=== PATIENT | female | born 1940 | race African-American/Black ===

== ENCOUNTER 2016-10-07 15:55 | Inpatient (IN) | payer MEDICARE, MEDICAID ==
--- NOTE | 2016-10-07 16:15 | ED Physician Chart ---
Chief Complaint/HPI - Patient Information Date Seen:: 10/07/16 Time Seen:: 16:01 Chief Complaint:: PSYCHOSIS History of Present Illness:: THIS PATIENT IS 76 YO LONG-TERM PATIENT SENT HERE FOR EVALUATION AND TREATMENT. SHE IS UNABLE TO COMMUNICATE AND SPEAKS ONLY [place]. Allergies:: Allergies Allergy/AdvReac Type Severity Reaction Status Date / Time No Known Allergies Allergy Verified 10/07/16 16:00 Historian:: Medical Records Review:: Nurse's Note Reviewed Review of Systems - Review of Systems General/Constitutional: No fever, No chills, No weight loss, No weakness, No diaphoresis, No edema, No loss of appetite, Other (SHE CANNOT GIVE A REVIEW OF SYSTEMS) Skin: No skin lesions, No rash, No bruising Head: No headache, No light-headedness Eyes: No loss of vision, No pain, No diplopia ENT: No earache, No nasal drainage, No sore throat, No tinnitus Neck: No neck pain, No swelling, No thyromegaly, No stiffness, No mass noted Cardio Vascular: No chest pain, No palpitations, No PND, No orthopnea, No edema Pulmonary: No SOB, No cough, No sputum, No wheezing GI: No nausea, No vomiting, No diarrhea, No pain, No melena, No hematochezia, No constipation, No hematemesis G/U: No dysuria, No frequency, No hematuria Musculoskeletal: No bone or joint pain, No back pain, No muscle pain Endocrine: No polyuria, No polydipsia Psychiatric: No prior psych history, No depression, No anxiety, No suicidal ideation Hematopoietic: No bruising, No lymphadenopathy Allergic/Immuno: No urticaria, No angioedema Neurological: No syncope, No focal symptoms, No weakness, No paresthesia, No headache, No seizure, No dizziness, No confusion, No vertigo Past Medical History - Past Medical History Obtainable: No Past Medical History: ESRD, Dementia Family History: None Social History: Non Smoker, No Alcohol, No Drug Use, Care Facility Surgical History: other (UNKNOWN) Psychiatricy History: Bipolar, Dementia Medication: Reviewed Family Medical History - Family Member Mother History Unknown: Yes Physical Exam - Physical Examination General/Constitutional: Awake, Well-developed, well-nourished, Alert, No distress, GCS 15, Non-toxic appearing, Ambulatory Other Gen/Cons comments:: CONSTANTLY TALKING AND MOVING AROUND. SHE ALSO HAS TROUBLE HEARING. VERY THIN. Head: Atraumatic Eyes: Lids, conjuctiva normal, PERRL, EOMI Skin: Nl inspection, No rash, No skin lesions, No ecchymosis, Well hydrated, No lymphadenopathy ENMT: External ears, nose nl, Nasal exam nl, Lips, teeth, gums nl Neck: Nontender, Full ROM w/o pain, No JVD, No nuchal rigidity, No bruit, No mass, No stridor Respiratory: Nl effort/Exclusion, Clear to Auscultation, No Wheeze/Rhonchi/Rales Cardio Vascular: RRR, No murmur, gallop, rubs, NL S1 S2 GI: No tenderness/rebounding/guarding, No organomegaly, No hernia, Normal BS's, Nondistended, No mass/bruits, No McBurney tenderness : No CVA tenderness Extremities: No tenderness or effusion, Full ROM, normal strength in all extremities, No edema, Normal digits & nails Neuro/Psych: Alert/oriented, DTR's symmetric, Normal sensory exam, Normal motor strength, Judgement/insight normal (NO INSIGHT OR JUDGEMENT), Mood normal ( DEPRESSED), Normal gait, No focal deficits Other Neuro/Psych comments:: CANNOT EVALUATE Misc: normal gait, Normal back, No paraspinal tenderness Labs/Radiology/EKG Results - Lab Results Comments:: Abnormal Lab Results 10/09/16 10/09/16 14:03 14:03 Sodium 137 Potassium 3.3 L Chloride 106 Carbon Dioxide 26.3 Anion Gap 8.0 BUN 9 Creatinine 0.6 Est GFR ( Amer) TNP Est GFR (Non-Af Amer) TNP BUN/Creatinine Ratio 15.0 Glucose 191 H Hemoglobin A1c % 5.7 Calcium 9.4 Magnesium 2.2 Laboratory Results - last 24 hr 10/09/16 10/09/16 14:03 14:03 Sodium 137 Potassium 3.3 L Chloride 106 Carbon Dioxide 26.3 Anion Gap 8.0 BUN 9 Creatinine 0.6 Est GFR ( Amer) TNP Est GFR (Non-Af Amer) TNP BUN/Creatinine Ratio 15.0 Glucose 191 H Hemoglobin A1c % 5.7 Calcium 9.4 Magnesium 2.2 - Radiology Results Results: CHEST X-RAY= NAD - EKG Interpretations EKG Time:: 16:18 Rhythm: NORMAL SINUS [place]: RIGHT AXIS Rate: 79 ED Septic Shock - . Is Septic Shock (SBP<90, OR Lactate>4 mmol\L) present?: No Reassessment (Disposition) - Reassessment Reassessment Condition:: Unchanged - Patient Disposition Discharge/Transfer:: Acute Care w/in this hosp Admitting Medical Physician:: Carrie Zuniga Admitting Psych Physician:: Darlyn Kent Time:: 16:00 Condition at Disposition:: Unchanged ED Discharge Plan - Patient Disposition Admit/Discharge/Transfer: Other Care w/in this hosp Condition at Disposition: Improved
[2016-10-07 16:36] LABS: % BASOPHILS 0.4 % (0.0-2.0); % EOSINOPHILS 1.3 % (0.0-5.0); % LYMPHOCYTES 27.6 % (20.0-50.0); % MONOCYTES 10.5 % (2.0-10.0); % NEUTROPHILS 60.2 % (40.0-80.0); HEMATOCRIT 36.9 % (35.0-45.0); HEMOGLOBIN 12.4 gm/dL (11.7-16.1); MEAN CELL VOLUME 85.5 fl (81-100); MEAN CORPUSCULAR HEMOGLOBIN 28.6 pg (27.0-31.0); MEAN CORPUSCULAR HGB CONC 33.5 pg (28.0-36.0); MEAN PLATELET VOLUME 8.5 fl; NEUTROPHILE ABSOLUTE 2.7 Th/cmm (1.8-8.0); PLATELET COUNT 202 Th/cmm (150-400); RED BLOOD COUNT 4.32 Mil/cmm (3.80-5.20); RED CELL DISTRIBUTION WIDTH 13.1 % (11.5-20.0); WHITE BLOOD COUNT 4.6 Th/cmm (4.8-10.8)
[2016-10-07 16:42] LABS: CHOLESTEROL 175 mg/dL (<200); TRIGLYCERIDES 64 mg/dL (<150)
[2016-10-07 16:43] LABS: INR 0.97 (0.5-1.4); PROTHROMBIN TIME (TEST) 9.6 SECONDS (9.5-11.5)
[2016-10-07 16:44] LABS: ALB/GLOB RATIO 1.1 (1.0-1.8); ALKALINE PHOSPHATASE 62 U/L (34-104); ANION GAP 5.2 (7.0-16.0); BILIRUBIN,TOTAL 0.3 mg/dL (0.3-1.0); BUN - UREA NITROGEN 16 mg/dL (7-25); BUN/CREATININE RATIO 26.7; CALCIUM SERUM 9.7 mg/dL (8.6-10.3); CARBON DIOXIDE 24.1 mEq/L (21.0-31.0); CHLORIDE 107 mEq/L (98-107); CREATININE - SERUM 0.6 mg/dL (0.6-1.2); GLUCOSE 84 mg/dL (70-105); POTASSIUM SERUM 3.3 mEq/L (3.5-5.1); SGOT 19 U/L (13-39); SGPT/ALT 11 U/L (7-52); SODIUM SERUM 133 mEq/L (136-145)
[2016-10-07 16:51] LABS: URINE BILIRUBIN NEGATIVE (NEGATIVE); URINE BLOOD TRACE (NEGATIVE); URINE COLOR YELLOW; URINE GLUCOSE (UA) NEGATIVE (NEGATIVE); URINE KETONE NEGATIVE (NEGATIVE); URINE PH 5.5; URINE PROTEIN TRACE mg/dL (NEGATIVE)
[2016-10-07 16:52] LABS: URINE BACTERIA OCCASIONAL /hpf (NONE SEEN); URINE EPITHELIAL CELLS OCCASIONAL /lpf (FEW); URINE RBC 0-2 /hpf (0-5); URINE UROBILINOGEN 0.2 E.U./dL (0.2 - 1.0)
[2016-10-07] MEDS ORDERED: Potassium Chloride 20 mEq ER Tab PO ONE ×2 (17:00→17:26)
[2016-10-07 21:37] VITALS: BP 138/68
[2016-10-07] MEDS ORDERED: Maalox 30 mL Cup PO PRN (22:01)
[2016-10-08] MEDS: Multivitamin Tab PO SCH ×2 (09:07→09:14)
--- NOTE | 2016-10-08 10:21 | Diagnostic Imaging Report ---
Portable chest x-ray HISTORY: Shortness of breath The heart is enlarged. Atherosclerotic calcination seen in the aorta. Central age and the interstitial lung markings. However, no focal pulmonary processes are seen. Osteoporosis and degenerative changes seen throughout the spine. IMPRESSION: 1. No acute focal pulmonary processes 2. Cardiomegaly with atherosclerotic vascular changes
[2016-10-08] MEDS ORDERED: Haloperidol Lactate 5 mg/mL 1mL Vial ONE (18:42)
[2016-10-08] MEDS ORDERED: Haloperidol Lactate 5 mg/mL 1mL Vial IM ONE (18:44)
[2016-10-08] MEDS: Magnesium Hydroxide (MOM) 30 mL UDC PO SCH (21:31)
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
--- NOTE | 2016-10-09 03:17 | Psychosocial Evaluation ---
IDENTIFICATION DATA: The patient was transferred from [facility]. CHIEF COMPLAINT: Psychotic disorder. HISTORY OF PRESENT ILLNESS: The patient is a 76-year-old female who was sent from her prison facility for increased agitation and aggressive behavior. The patient has a history of dementia, depression, psychosis, and has been combative. She is refusing care. The patient kept saying, "johnna." The patient would not talk further more. PAST PSYCHIATRIC HISTORY: Dementia, psychosis, and depression. PAST MEDICAL HISTORY: The patient was medically cleared in the Emergency Room. The patient has a history of degenerative joint disease, history of muscle weakness, chronic kidney disease, and anemia. PSYCHOSOCIAL HISTORY: The patient resides at [facility] prison facility. She requires complete care. MENTAL STATUS EXAMINATION: The patient is disorganized and internally preoccupied. Speech is loud at times, talking in Mauritian. The patient is suspicious, internally preoccupied. The patient's insight is poor and judgment remains impaired. The patient is actively hallucinating. She is oriented to person, not oriented to time and place. The patient's strength is the patient is passively accepting treatment. The patient's weakness is lack of insight. 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 Medical, as per medical history. PLAN: At this time, we will admit the patient for hospitalization. We will start individual and group therapy and assess psychopharmacological intervention. ESTIMATED LENGTH OF STAY: 7 days. CRITERIA FOR DISCHARGE: Improved condition. No agitation, no psychosis, and safe disposition, outpatient treatment plan. [facility]# [id number]
[2016-10-09] MEDS: Multivitamin Tab PO SCH ×2 (09:11→09:14)
[2016-10-09 14:44] LABS: BUN - UREA NITROGEN 9 mg/dL (7-25); CALCIUM SERUM 9.4 mg/dL (8.6-10.3); CARBON DIOXIDE 26.3 mEq/L (21.0-31.0); CHLORIDE 106 mEq/L (98-107); CREATININE - SERUM 0.6 mg/dL (0.6-1.2); GLUCOSE 191 mg/dL (70-105); MAGNESIUM 2.2 mg/dL (1.9-2.7); POTASSIUM SERUM 3.3 mEq/L (3.5-5.1); SODIUM SERUM 137 mEq/L (136-145)
[2016-10-09] MEDS ORDERED: Potassium Chloride 20 mEq ER Tab PO ONE (16:02)
--- NOTE | 2016-10-09 20:37 | Admit Criteria Form ---
Admit Criteria Forms - Admit Criteria Diagnosis: PSYCHIATRIC DISORDERS Clinical Indications for Inpatient Care (Place 'X' for any and all applicable criteria): Ongoing inpatient care may be needed for ANY ONE of the following(1)(2)(3)(4)(6) (7)(8): [ ]I. Danger to self or others not manageable at lower level of care. [ ]II. Grave disability (eg, inability to perform self care necessary at lower level of care) [ ]III. Agitation or inappropriate behavior interfering with care for primary condition (eg, attempting to discontinue lines or drains prematurely, unable to cooperate with respiratory care) [X]IV. Severe disability or disorder indicated by ALL of the following: [ X]a) Severe behavioral health disorder-related symptoms or condition indicated by ANY ONE of the following: [X]i) Severe problem with cognition, memory, judgment, or impulse control [X]ii) Severe clinical manifestations (eg, hallucinations, delusions, other acute psychotic symptoms, anshu, extreme agitation or anxiety) [X]b) Patient management at lower level of care is not feasible until acute intervention or modification is initiated. Extended stay beyond goal length of stay for the primary condition may be indicated when ANY ONE of the following is present: (1)(2)(3)(4): [ ]a) Patient is a danger to self or others and not manageable at lower level of care. [ ]b) Behavior crisis management, including physical or chemical restraints, is required and is not available at a lower level of care. [ ]c) Behavioral symptoms (e.g., agitation, somnolence, inappropriate behavior) are present, and are not manageable at a lower level of care. [ ]d) Patient cannot understand follow-up treatment and crisis plan. [ ]e) Provider and supports are not sufficiently available at lower level of care. [ ]f) Patient cannot participate (e.g., verify absence of plan for harm) and is in needed of monitoring. The original [facility] [employer] [facility] content created by [facility] has been revised. The portions of the content which have been revised are identified through the use of italic text or in bold, and [facility] has neither reviewed nor approved the modified material. All other unmodified content is copyright [facility]. Please see references footnoted in the original [facility] edition 2016 Admit Criteria Met?: Yes
[2016-10-09] MEDS: Magnesium Hydroxide (MOM) 30 mL UDC PO SCH (21:37)
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
[2016-10-10] MEDS: Multivitamin Tab PO SCH (08:02)
[2016-10-10] MEDS: Magnesium Hydroxide (MOM) 30 mL UDC PO SCH (20:34)
--- NOTE | 2016-10-11 00:56 | Progress Notes ---
TIME PATIENT SEEN: 8:30 a.m. SUBJECTIVE: Staff was spoken to. The patient is interviewed. Mood is noted to be irritable. Affect is constricted. The patient is screaming and yelling. The patient has problem with the language barrier and hopefully tonight, there is going to be a staff for coverage, going to be speaking the same language, will be able to get into the patient information in detail rather than depending on the son's information. The patient, at this time, is still very confused and agitated and needs to be redirected. The patient's son is critical of the care that is provided in here and he wants to look for some place close to his residence in [place]. PLAN: To continue the patient with the current medications and followup. JOB# [id number]
[2016-10-11] MEDS: Multivitamin Tab PO SCH (08:05)
[2016-10-11] MEDS: Magnesium Hydroxide (MOM) 30 mL UDC PO SCH (20:49)
--- NOTE | 2016-10-12 01:50 | Progress Notes ---
TIME PATIENT SEEN: 08:00 a.m. SUBJECTIVE: Staff was spoken to. The patient is interviewed. Mood is noted to be irritable. Affect is constricted. The patient is still having difficult time to cope with the stress. Coping skills are noted to be very poor. The patient has been getting easily irritable. The patient has been refusing to take the medication and it has to be crushed for the patient to accept it. The patient has no insight into her illness. The patient's son at this time is very skeptical with regards to the medications that are going to be given, but the patient is going to be continued on the Haldol as given before 2 mg as needed. The patient is going to be closely monitored at this time. ASSESSMENT: The patient is still psychotic and demented and has no place to return to. PLAN: To continue the patient with the supportive therapy and follow. [facility]# [id number]
[2016-10-12] MEDS: Multivitamin Tab PO SCH (08:18)
[2016-10-12] MEDS: Magnesium Hydroxide (MOM) 30 mL UDC PO SCH (20:41)
--- NOTE | 2016-10-13 01:17 | Progress Notes ---
PSYCHIATRIC PROGRESS NOTE TIME PATIENT SEEN: 8:15 a.m. SUBJECTIVE: Staff was spoken to. The patient is interviewed. Mood is noted to be still irritable. The patient is reluctant to comply with the medications. Insight and judgment at this time are noted to be still impaired. Impulse control seems to be poor. Coping skills are also noted to be poor. The patient has been having difficult time to comply with the treatment. The patient has been reluctant to take the Seroquel at night time and hence it is changed to morning dose. ASSESSMENT: The patient is still psychotic, paranoid, and impulsive. PLAN: To change the Seroquel to morning and follow the patient. This casework specialist has been informed of the needs that the patient be placed closed to her son in [place]. JOB# [id number]
[2016-10-13] MEDS: Multivitamin Tab PO SCH (08:04)
[2016-10-13] MEDS: Magnesium Hydroxide (MOM) 30 mL UDC PO SCH (20:49)
--- NOTE | 2016-10-14 02:28 | Progress Notes ---
TIME PATIENT SEEN: 5:30 p.m. SUBJECTIVE: Staff was spoken to. The patient is interviewed. Mood is noted to be irritable. Affect is constricted. The patient is still having difficult time to cope with the stress. No side effects to the medications are noted. Sleep and appetite are noted to be poor. The patient is screaming and yelling. There is a language barrier, but the patient's son has been stating that there is nothing wrong with her. The patient is currently medicated with the Seroquel. ASSESSMENT: The patient is still psychotic and demented and agitated. PLAN: To continue the patient with the current medications and ____await for placement. PS[facility]IC# [id number]
[2016-10-14] MEDS: Multivitamin Tab PO SCH ×2 (08:45→09:00)
[2016-10-14] MEDS: Magnesium Hydroxide (MOM) 30 mL UDC PO SCH (20:53)
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
[2016-10-15] MEDS: Multivitamin Tab PO SCH (08:02)
--- NOTE | 2016-10-15 19:25 | Progress Notes ---
PSYCHIATRIC PROGRESS NOTE TIME PATIENT SEEN: 7:30 a.m. SUBJECTIVE: Staff was spoken to. The patient is interviewed. The patient's son has been spoken to. The patient's son is stating that he is still looking for placement for this patient and no placement is available yet. The patient's coping skills are noted to be poor. The patient has been reluctant to comply with the medication in the morning time and the staff at night time are trying to convince the patient to take the medication. The patient is demented and confused. PLAN: To continue the patient with the supportive therapy and try to redirect her. JOB# [id number]
[2016-10-15] MEDS: Magnesium Hydroxide (MOM) 30 mL UDC PO SCH (20:48)
[2016-10-16] MEDS: Multivitamin Tab PO SCH (17:09)
[2016-10-16] MEDS: Magnesium Hydroxide (MOM) 30 mL UDC PO SCH (21:07)
--- NOTE | 2016-10-16 23:54 | Progress Notes ---
PSYCHIATRIC PROGRESS NOTE: TIME PATIENT SEEN: 12:30 p.m. SUBJECTIVE: Staff was spoken to. The patient is interviewed. Mood is noted to be irritable. Affect is constricted. The patient's insight and judgment at this time are noted to be impaired. Impulse control is noted to be poor. The patient has been having difficult time to cope with the stress. The patient is refusing to take the medications today, but the patient is not presenting with any major behavioral problems. The patient's son has been met yesterday and he has been stating that he is looking for placement, but he is not successful yet. manager part has been requested to help the son to look at the proper placement for this patient. PLAN: To continue the patient with supportive therapy and followup. JOB# [id number]
[2016-10-17] MEDS: Multivitamin Tab PO SCH (10:19)
[2016-10-17] MEDS: Magnesium Hydroxide (MOM) 30 mL UDC PO SCH (21:34)
[2016-10-18] MEDS: Magnesium Hydroxide (MOM) 30 mL UDC PO SCH (20:25)
--- NOTE | 2016-10-19 01:18 | Progress Notes ---
PSYCHIATRIC PROGRESS NOTE TIME PATIENT SEEN: 7:45 a.m. SUBJECTIVE: Staff was spoken to. The patient is interviewed. The patient is actively responding to the internal stimuli. Coping skills are noted to be very poor which is a language barrier. The patient cannot say, but tends to scream. The patient's insight and judgment are noted to be very much impaired. Impulse control seems to be minimal. The patient needs to be redirected. The patient has no place for her to be discharged to at this time. PLAN: To continue the patient with the current medications. I encouraged the patient to verbalize the concerns rather than to act out. JOB# [id number]
[2016-10-19] MEDS: Multivitamin Tab PO SCH (10:32)
[2016-10-19] MEDS: Magnesium Hydroxide (MOM) 30 mL UDC PO SCH (21:01)
--- NOTE | 2016-10-19 23:29 | Progress Notes ---
PSYCHIATRIC PROGRESS NOTE TIME PATIENT SEEN: 7:45 a.m. SUBJECTIVE: Staff was spoken to. The patient is interviewed. Mood is noted to be irritable. Affect is constricted. Insight and judgment are noted to be still impaired. Impulse control seems to be poor. Coping skills are also noted to be poor. The patient is still responding to internal stimuli. The patient has no insight into her illness. The patient is actively responding to internal stimuli, but when confronted, the patient is denying that she has been hearing any voices. ASSESSMENT: The patient is still paranoid and awaiting placement. PLAN: To continue the patient with the supportive therapy and follow up. JOB# [id number]
[2016-10-20] MEDS: Multivitamin Tab PO SCH (11:09)
[2016-10-20] MEDS: Magnesium Hydroxide (MOM) 30 mL UDC PO SCH (20:20)
--- NOTE | 2016-10-21 00:47 | Progress Notes ---
PSYCHIATRIC PROGRESS NOTE TIME PATIENT SEEN: 8:45 a.m. SUBJECTIVE: Staff was spoken to. The patient is interviewed. Mood is noted to be ____. Affect is constricted. The patient is still responding to internal stimuli. The patient has no insight into her illness. The patient has been having a difficult time to cope with the stress. The patient is still having difficulty in communication, but she is isolative and has been religiously preoccupied .ASSESSMENT: The patient is still psychotic. PLAN: To continue with the patient with Seroquel and follow the patient with the supportive therapy and ____ will monitor the patient's behavior and . [facility]# [id number]
[2016-10-21] MEDS: Multivitamin Tab PO SCH (09:49)
[2016-10-21] MEDS ORDERED: Haloperidol Lactate 5 mg/mL 1mL Vial ONE (15:57)
[2016-10-21] MEDS ORDERED: Haloperidol Lactate 5 mg/mL 1mL Vial IM ONE (15:59)
[2016-10-21] MEDS: Magnesium Hydroxide (MOM) 30 mL UDC PO SCH (20:24)
--- NOTE | 2016-10-22 00:59 | Progress Notes ---
SUBJECTIVE: The patient was seen, remains confused, disorganized, still anxious, guarded, still paranoid with episodes talking to herself. The patient's son was visiting today. The patient's insight is still limited. ASSESSMENT: The patient is still confused and disorganized. PLAN: We will continue hospitalization. Continue medication management. Continue supportive measures. creative services manager was working on with the family on placement issues. JOB# [id number]
[2016-10-22] MEDS: Multivitamin Tab PO SCH (10:00)
[2016-10-22] MEDS: Magnesium Hydroxide (MOM) 30 mL UDC PO SCH (20:50)
[2016-10-23] MEDS: Multivitamin Tab PO SCH (08:20)
--- NOTE | 2016-10-23 09:09 | Progress Notes ---
SUBJECTIVE: The patient was seen and discussed with staff. Continues to have yelling episodes, hitting staff, highly paranoid, talking to herself, refusing most p.o. medications. The patient's compliance has been an issue at times. ASSESSMENT: The patient is still in psychotic phase, highly agitated. PLAN: We will continue stabilization. Continue to monitor closely, use Haldol Decanoate to help improve compliance. We will monitor closely for any side effects. JOB# [id number]
[2016-10-23] MEDS: Magnesium Hydroxide (MOM) 30 mL UDC PO SCH (21:15)
--- NOTE | 2016-10-23 21:28 | Progress Notes ---
SUBJECTIVE: I met this patient, discussed with staff. Still isolative, guarded, episodes of yelling, talking to herself, episodes of refusing care. The patient is oriented to person, not oriented to time and place. The patient keeps talking to herself and rambling and difficult to comprehend. The patient received Haldol Decanoate to help improve compliance and she appears to be a little bit less angry today and less agitated. PLAN: We will allow more time for clinical efficacy. We will monitor closely. JOB# [id number]
[2016-10-24] MEDS: Multivitamin Tab PO SCH (12:20)
--- NOTE | 2016-10-25 01:36 | Progress Notes ---
SUBJECTIVE: The patient was seen, discussed with staff, less agitated, less irritable, less anxious, still confused, forgetful, talking to self at times, but her appetite and sleep has been improving. The patient at this time will be [facility] to [facility]. She is not voicing any suicidal thoughts and her condition improved from clinical point of view and aggressive behavior subsided down. [facility]# [id number]
--- NOTE | 2016-11-25 06:38 | Discharge Summary ---
IDENTIFYING DATA: The patient is a 76-year-old -Syrian woman, resident of a [facility], admitted here after she was transferred from [facility] for acute agitation and psychosis. CHIEF COMPLAINT: None. DIAGNOSES AT THE TIME OF ADMISSION: AXIS I: A. 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 B. Dementia and behavioral changes secodary to it. HISTORY OF PRESENT ILLNESS: Please refer to October 08, 2016, dictation by Dr. Whittaker. Physical examination was done by Dr. Larry and is noted to be significant for degenerative joint disease, generalized muscle weakness. HOSPITAL COURSE AND RESPONSE TO TREATMENT: Blood work done at the time of the hospitalization has been reviewed by Dr. Larry. HOSPITAL COURSE AND RESPONSE TO TREATMENT: The patient has been observed on inpatient unit, provided with supportive psychotherapy. The patient has to be given a dose of lorazepam and haloperidol to contain her agitated behavior. haldol dec was given prior to being hospitalized and the patient has been placed on Seroquel 25 mg at bedtime. The patient continued to be responding to internal stimuli and not making much sense. The patient's son has been instrumental in helping us with regard to translation of the patient's language. The patient also has been placed on5 mg of haloperidol twice a day for her psychosis. With these medications, the patient was observed and was doing well. The patient was finally discharged with recommendation that she is going to be seeking treatment on an outpatient basis. MENTAL STATUS EXAMINATION: At the time of discharge, the patient's mood is noted to be anxious. Insight and judgment noted to be improving. Impulse control seemed to be fair. No side effects to the medications are noted. The patient, however, continues to be psychotic and hallucinations are going down. The patient's behavior has been coming under control. The patient is not presenting with any threats to harm self or others at the time of the discharge. DIAGNOSES AT THE TIME OF DISCHARGE: AXIS I: A. 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 B. Dementia and behavioral change secondary to it.. AXIS II: None. AXIS III: None. AFTERCARE PLAN: The patient is discharged to a nursing home facility for further followup. JOB# [id number] [facility]
== END 2016-10-24 17:00 | DRG 57 ==
LOC: ER 15:55 → GERO 16:30
PROVIDERS: ADMIT Psychiatry & Neurology Psychiatry; ATTEND Psychiatry & Neurology Psychiatry
DX: G30.9 Alzheimer's disease, unspecified (principal); F02.80 Dementia in other diseases classified elsewhere, unspecified severity, without behavioral disturbance, psychotic disturbance, mood disturbance, and anxiety; D64.9 Anemia, unspecified; F22 Delusional disorders; I12.9 Hypertensive chronic kidney disease with stage 1 through stage 4 chronic kidney disease, or unspecified chronic kidney disease; F29 Unspecified psychosis not due to a substance or known physiological condition; F31.9 Bipolar disorder, unspecified; M19.90 Unspecified osteoarthritis, unspecified site; N18.9 Chronic kidney disease, unspecified; F41.9 Anxiety disorder, unspecified; R53.1 Weakness; E87.6 Hypokalemia
CPT/HCPCS: 36415-UA; 71010-TC; 80048-TC; 80053-TC; 80061-TC; 81001-TC; 83036-90; 83735-TC; 84443-TC; 84484-TC; 85025-TC; 85610-TC; 85730-TC; 86592-TC; 93005; J1200; J1630; J1631; J2060; Z7610

== ENCOUNTER 2017-01-10 00:48 | Inpatient (IN) | payer MEDICARE, MEDICAID ==
--- NOTE | 2017-01-10 01:13 | ED Physician Chart ---
Chief Complaint/HPI - Patient Information Date Seen:: 01/10/17 Time Seen:: 00:50 Chief Complaint:: agitation History of Present Illness:: 77-year-old female brought in by ambulance with acute, severe, constant, agitation since apparently this morning. Has associated uncooperative behavior and aggressive attitude towards staff and other patients. History limited as patient has underlying uncooperative behavior and psychosis History of EMS and EMS run sheet Allergies:: Allergies Allergy/AdvReac Type Severity Reaction Status Date / Time No Known Allergies Allergy Verified 10/07/16 16:00 Historian:: EMS Review:: EMS run form Reviewed Review of Systems - Review of Systems Other: Complete system review otherwise unremarkable except as noted in history of present illness. Family Medical History - Family Member Mother History Unknown: Yes Physical Exam - Physical Examination Other:: INITIAL VITAL SIGNS: Reviewed by me GENERAL: Alert and interactive but uncooperative. No acute distress HEAD: Head is normocephalic and atraumatic EYES: EOMI. PERRL. No scleral icterus. No conjunctival injection ENT: Moist mucous membranes. NECK: Supple. No masses. Full range of motion RESPIRATORY: No tachypnea. Clear breath sounds bilaterally. No wheezing, rales, or rhonchi CV: Regular rate and rhythm. No murmurs, rubs, or gallops ABDOMEN: Soft, non-distended, non-tender. No guarding. No rebound. No masses. EXTREMITIES: No deformity. No cyanosis. No edema. SKIN: Warm and dry. No obvious rashes. NEUROLOGIC: Alert and oriented. Face is symmetric. Speech is normal. Moves all extremities equally. Motor and sensory distally intact. ED Septic Shock - . Is Septic Shock (SBP<90, OR Lactate>4 mmol\L) present?: No Reassessment (Disposition) - Reassessment Reassessment:: Patient medically cleared for admission to the geriatric psych unit Reassessment Condition:: Unchanged - Diagnosis Diagnosis:: Acute psychosis, NOS - Patient Disposition Discharge/Transfer:: Acute Care w/in this hosp Admitted to:: [facility] Admitting Medical Physician:: Carrie Zuniga Admitting Psych Physician:: Russ Rosario Condition at Disposition:: Stable
[2017-01-10 01:43] LABS: % BASOPHILS 0.3 % (0.0-2.0); % EOSINOPHILS 1.5 % (0.0-5.0); % LYMPHOCYTES 31.7 % (20.0-50.0); % MONOCYTES 10.9 % (2.0-10.0); % NEUTROPHILS 55.6 % (40.0-80.0); MEAN CELL VOLUME 86.9 fl (81-100); MEAN CORPUSCULAR HEMOGLOBIN 29.1 pg (27.0-31.0); MEAN CORPUSCULAR HGB CONC 33.5 pg (28.0-36.0); MEAN PLATELET VOLUME 8.5 fl; NEUTROPHILE ABSOLUTE 2.4 Th/cmm (1.8-8.0); PLATELET COUNT 177 Th/cmm (150-400); RED BLOOD COUNT 4.14 Mil/cmm (3.80-5.20); RED CELL DISTRIBUTION WIDTH 13.5 % (11.5-20.0); WHITE BLOOD COUNT 4.4 Th/cmm (4.8-10.8)
[2017-01-10 01:57] LABS: ACETAMINOPHEN < 10.0 ug/mL (10.0-30.0); ALKALINE PHOSPHATASE 55 U/L (34-104); ANION GAP 5.5 (7.0-16.0); BILIRUBIN,TOTAL 0.4 mg/dL (0.3-1.0); BUN - UREA NITROGEN 10 mg/dL (7-25); CALCIUM SERUM 9.2 mg/dL (8.6-10.3); CARBON DIOXIDE 26.7 mEq/L (21.0-31.0); CHLORIDE 108 mEq/L (98-107); CREATININE - SERUM 0.5 mg/dL (0.6-1.2); GLUCOSE 93 mg/dL (70-105); POTASSIUM SERUM 3.2 mEq/L (3.5-5.1); SGOT 19 U/L (13-39); SGPT/ALT 12 U/L (7-52); SODIUM SERUM 137 mEq/L (136-145)
[2017-01-10 02:15] LABS: AMPHETAMINE URINE NEGATIVE (NEGATIVE); BARBITURATES URINE NEGATIVE (NEGATIVE); METHADONE URINE NEGATIVE (NEGATIVE)
[2017-01-10 02:16] LABS: URINE BILIRUBIN NEGATIVE (NEGATIVE); URINE COLOR YELLOW; URINE GLUCOSE (UA) NEGATIVE (NEGATIVE); URINE KETONE NEGATIVE (NEGATIVE)
[2017-01-10 02:17] LABS: URINE BLOOD TRACE (NEGATIVE); URINE PH 6.5; URINE PROTEIN NEGATIVE (NEGATIVE); URINE RBC 0-2 /hpf (0-5); URINE UROBILINOGEN 0.2 E.U./dL (0.2 - 1.0)
[2017-01-10 02:18] LABS: URINE BACTERIA OCCASIONAL /hpf (NONE SEEN); URINE EPITHELIAL CELLS OCCASIONAL /lpf (FEW)
[2017-01-10 03:53] VITALS: BP 150/69
[2017-01-10] MEDS ORDERED: Multivitamin Tab PO SCH (09:00)
[2017-01-10] MEDS ORDERED: Fleet Enema 135 mL RC PRN (13:15)
[2017-01-10] MEDS ORDERED: Maalox 30 mL Cup PO PRN ×2 (13:15)
[2017-01-10] MEDS: Multivitamin Tab PO SCH (14:12)
--- NOTE | 2017-01-10 16:46 | Admit Criteria Form ---
Admit Criteria Forms - Admit Criteria Diagnosis: PSYCHIATRIC DISORDERS Clinical Indications for Inpatient Care (Place 'X' for any and all applicable criteria): Ongoing inpatient care may be needed for ANY ONE of the following(1)(2)(3)(4)(6) (7)(8): [ ]I. Danger to self or others not manageable at lower level of care. [ ]II. Grave disability (eg, inability to perform self care necessary at lower level of care) [X ]III. Agitation or inappropriate behavior interfering with care for primary condition (eg, attempting to discontinue lines or drains prematurely, unable to cooperate with respiratory care) [ ]IV. Severe disability or disorder indicated by ALL of the following: [ ]a) Severe behavioral health disorder-related symptoms or condition indicated by ANY ONE of the following: [ ]i) Severe problem with cognition, memory, judgment, or impulse control [ ]ii) Severe clinical manifestations (eg, hallucinations, delusions, other acute psychotic symptoms, anshu, extreme agitation or anxiety) [ ]b) Patient management at lower level of care is not feasible until acute intervention or modification is initiated. Extended stay beyond goal length of stay for the primary condition may be indicated when ANY ONE of the following is present: (1)(2)(3)(4): [ ]a) Patient is a danger to self or others and not manageable at lower level of care. [ ]b) Behavior crisis management, including physical or chemical restraints, is required and is not available at a lower level of care. [ ]c) Behavioral symptoms (e.g., agitation, somnolence, inappropriate behavior) are present, and are not manageable at a lower level of care. [ ]d) Patient cannot understand follow-up treatment and crisis plan. [ ]e) Provider and supports are not sufficiently available at lower level of care. [ ]f) Patient cannot participate (e.g., verify absence of plan for harm) and is in needed of monitoring. The original [facility] content created by [facility] has been revised. The portions of the content which have been revised are identified through the use of italic text or in bold, and [facility] has neither reviewed nor approved the modified material. All other unmodified content is copyright [facility] [employer]. Please see references footnoted in the original [facility] edition 2016 Admit Criteria Met?: Yes
[2017-01-10] MEDS: Magnesium Hydroxide (MOM) 30 mL UDC PO SCH (20:21)
--- NOTE | 2017-01-11 03:36 | Psychosocial Evaluation ---
DATE OF SERVICE: 01/10/2017 IDENTIFYING DATA: The patient is a 77-year-old -Welsh woman, resident of [facility] and has been transferred over here because of her acute agitation and paranoia. SUBJECTIVE: Staff was spoken to. The patient is interviewed. The chart is reviewed. The patient continues to be irritable, angry and has been responding to internal stimuli. The patient is known to me from the previous psychiatric hospitalization. The patient's son was the one that was here last time and has been mentioning that the people he has been going to visit with mother and has been bringing all those , but the people have been stating problems that is why she is getting agitated, but at this time, the patient is noted to be actively responding to internal stimuli, even when she has been on the Seroquel, this seems to be not happening. The patient has been having difficult time to cope with the stress. Insight and judgment at this time are noted to be still impaired. Impulse control seems to be limited. Coping skills are also noted to be poor at this time. PAST PSYCHIATRIC HISTORY: Please refer to the above. MEDICAL HISTORY: The physical examination is requested to be done by Dr. Zuniga. SUBSTANCE ABUSE HISTORY: None. PHYSICAL OR SEXUAL ABUSE HISTORY: None. LEGAL PROBLEMS: None at this time. STRENGTH AND ASSETS: The patient is motivated. MENTAL STATUS EXAMINATION: The patient is a 77-year-old woman, looking her stated age, thin built, superficially cooperative. Eye contact is poor. Mood is noted to be irritable. Affect is constricted. Coping skills are noted to be poor. The patient has been having difficult time to cope with the stress. Insight and judgment at this time are noted to be very much impaired and the patient is not able to contract for safety. The patient has been having difficult time to cope with the stress. The patient is alert and awake that she is in the hospital, but there is a language problem. Attention span and concentration are noted to be poor at this time. The patient is responding to internal stimuli. The patient's behavior is a clear danger to others. DIAGNOSTIC IMPRESSION: 1a. Psychotic disorder, unspecified. 1b. Dementia and behavioral changes, secondary trait. PLAN: To continue the patient with supportive therapy and continue the Seroquel 25 mg, but is going to be given at bedtime and the patient is going to be encouraged to participate in the groups and verbalize the concerns rather than to act out. ESTIMATED LENGTH OF STAY: 5-7 days. DISCHARGE CRITERIA: When she no longer a threat to self or others and be able to cope up with the stress. JOB# [id number]
--- NOTE | 2017-01-11 07:02 | Consultation ---
DATE OF CONSULTATION: 01/10/2017 REFERRING PHYSICIAN: Dr. Rosario. REASON FOR CONSULTATION: Medical management. HISTORY OF PRESENT ILLNESS: This is a 77-year-old female, who suffers from advanced dementia with psychotic features, essential hypertension, who has been noted to have aggressive and disruptive behavior towards staff at [facility] where she resides. She was transferred to the hospital and has been admitted to [facility] for further management and care. The patient is an extremely poor historian and unable to communicate at this time, but appears to be stable. Pertinent findings on admission include potassium of 3.2 and UA showing trace leukocyte esterase. PAST MEDICAL HISTORY: Hypertension and constipation. PAST SURGICAL HISTORY: Unknown. FAMILY HISTORY: Unknown, but likely noncontributory to this admission. SOCIAL HISTORY: She lives at a [facility] facility. No tobacco, ETOH, or illicit drug usage. ALLERGIES: NKDA. OUTPATIENT MEDICATIONS: Acetaminophen 650 q. 4h p.r.n. for pain; milk of magnesia p.r.n.; Mylanta p.r.n.; amlodipine 5 every day; Dulcolax 10 mg per rectum p.r.n. for constipation; docusate sodium 100 every day; lorazepam 0.4 q. 6h p.r.n. for anxiety; magnesium hydroxide prn ; Namenda 10 every day; multivitamins every day; quetiapine 25 every day. REVIEW OF SYSTEMS: Unable to be done given the patient's condition. PHYSICAL EXAMINATION: VITAL SIGNS: Temperature 97.9, pulse 61, respirations 19, BP 128/60, satting 96% on room air. GENERAL: Well nourished, thin, elderly female, currently sitting up in bed, not in acute distress. HEAD AND NECK: Normocephalic, atraumatic. Pupils are reactive to light. CARDIOVASCULAR: Regular rate and rhythm with distant sounds. LUNGS: Decreased at the bases, but clear to auscultation bilaterally. ABDOMEN: Soft, supple, nontender, nondistended, normoactive bowel sounds. EXTREMITIES: No edema in lower extremities. LABORATORY DATA: White count 4.4, H and H 12 and 36, platelet count of 177, potassium 3.2, chloride 108, CO2 of 26. Sodium 137. LFTs were within normal limits. UA shows trace leukocyte esterase. IMPRESSION: 1. Acute psychosis. 2. History of advanced dementia with psych features. 3. Essential hypertension. 4. Mild hypokalemia. 5. Mild urinary tract infection. PLAN: The patient has been admitted to the [facility] for further management and care. The patient will remain on her current medications. I have asked for a BMP and a magnesium level in the morning to further evaluate her hypokalemia, and I have started her on Cipro 250 b.i.d. for 7 days. JOB# [id number] [facility]
[2017-01-11] MEDS: Multivitamin Tab PO SCH (08:15)
[2017-01-11] MEDS: Magnesium Hydroxide (MOM) 30 mL UDC PO SCH (20:42)
[2017-01-12] MEDS: Multivitamin Tab PO SCH (10:00)
--- NOTE | 2017-01-12 20:02 | Progress Notes ---
DATE: 01/11/2017 PSYCHIATRIC PROGRESS NOTE TIME PATIENT SEEN: 6:45 p.m. SUBJECTIVE: Staff was spoken to. The patient is interviewed. Mood is noted to be irritable. Affect is constricted. The patient is responding to internal stimuli, language barrier is a major concern with the patient. The patient has no insight into her illness. The patient is still demented, very hard to redirect the patient. The patient has been refusing to comply with the medication. ASSESSMENT: The patient is still psychotic and confused and demented. PLAN: To continue the patient with Seroquel and followup. JOB# [id number]
[2017-01-12] MEDS: Magnesium Hydroxide (MOM) 30 mL UDC PO SCH (20:14)
--- NOTE | 2017-01-13 05:13 | Progress Notes ---
DATE: 01/12/2017 PSYCHIATRIC PROGRESS NOTE TIME PATIENT SEEN: 10:30 a.m. SUBJECTIVE: Staff was spoken to. The patient is interviewed. Mood is noted to be irritable. Affect is constricted. The patient has paranoid delusions and is responding to internal stimuli. Insight and judgment are noted to be very much impaired. Coping skills are noted to be poor. The patient is religiously preoccupied, keeps on praying. The patient is on too low dose of the Seroquel at this time able to tolerate, but the patient has been refusing and it is becoming difficult to convince the patient to comply with the medication at this time. PLAN: To closely monitor the patient and then follow up. [facility]# [id number]
[2017-01-13] MEDS: Multivitamin Tab PO SCH (08:50)
[2017-01-13] MEDS: Magnesium Hydroxide (MOM) 30 mL UDC PO SCH (21:08)
[2017-01-14] MEDS: Multivitamin Tab PO SCH (08:41)
--- NOTE | 2017-01-14 09:10 | Progress Notes ---
DATE: 01/13/2017 PSYCHIATRIC PROGRESS NOTE TIME PATIENT SEEN: 9:45 a.m. SUBJECTIVE: Staff was spoken to. The patient is interviewed. Mood is noted to be irritable. Affect is constricted. Insight and judgment at this time are noted to be still impaired. Impulse control is noted to be limited. The patient has been still responding to internal stimuli. The patient has been reluctant to comply with the medication. With a great difficulty, the patient has taken one dose of the medication last night. ASSESSMENT: The patient is still psychotic and demented. PLAN: To continue the patient with the current medications and followup. [facility]# [id number]
[2017-01-14] MEDS: Magnesium Hydroxide (MOM) 30 mL UDC PO SCH (21:12)
--- NOTE | 2017-01-14 23:30 | Progress Notes ---
DATE: 01/14/2017 PSYCHIATRIC PROGRESS NOTE TIME PATIENT SEEN: 11:00 a.m. SUBJECTIVE: Staff was spoken to. The patient is interviewed. Mood is irritable. Affect is constricted. Insight and judgment are noted to be still impaired. Impulse control seems to be poor. Coping skills are also noted to be poor. The patient has been having difficult time to cope with the stress. No side effects of medications are noted at this time. The patient has been resistant to comply with the medication. ASSESSMENT: The patient is still paranoid and demented. PLAN: To continue the patient with the supportive therapy. Encouraged the patient to verbalize the concerns rather than to act out. JOB# [id number]
[2017-01-15] MEDS: Multivitamin Tab PO SCH (08:24)
--- NOTE | 2017-01-15 19:10 | Progress Notes ---
DATE: 01/15/2017 PSYCHIATRIC PROGRESS NOTE TIME PATIENT SEEN: 8:45 a.m. SUBJECTIVE: Staff was spoken to. The patient is interviewed. The patient is isolative and withdrawn. The patient is still religiously preoccupied. Insight and judgment are noted to be still impaired. The patient has problem with a language barrier. The patient, however, has been reluctant to take the medications. No major behavioral problems are noted today. The patient has been placed on the Seroquel and encouraged to comply with the treatment. No side effects to the medications are noted. ASSESSMENT: The patient is still demented and psychotic. PLAN: To continue the patient with supportive therapy and followup. JOB# [id number]
[2017-01-15] MEDS: Magnesium Hydroxide (MOM) 30 mL UDC PO SCH (21:00)
[2017-01-16] MEDS: Multivitamin Tab PO SCH (08:31)
[2017-01-16] MEDS: Magnesium Hydroxide (MOM) 30 mL UDC PO SCH (21:11)
--- NOTE | 2017-01-16 23:39 | Progress Notes ---
DATE: 01/16/2017 PSYCHIATRIC PROGRESS NOTE TIME PATIENT SEEN: 8:45 a.m. SUBJECTIVE: Staff was spoken to. The patient is interviewed. Mood is noted to be irritable. Affect is constricted. The patient is religiously preoccupied and halleluiah all the time. The patient has no insight into her illness. The patient is very confused and demented, needs to be redirected. ASSESSMENT: The patient is grossly psychotic and demented. PLAN: To continue the patient with the supportive therapy. I encouraged the patient to verbalize the concerns rather than to act out. JOB# [id number]
[2017-01-17] MEDS: Multivitamin Tab PO SCH (08:10)
[2017-01-17] MEDS: Magnesium Hydroxide (MOM) 30 mL UDC PO SCH (21:04)
--- NOTE | 2017-01-18 08:01 | Progress Notes ---
DATE: 01/17/2017 PSYCHIATRIC PROGRESS NOTE TIME PATIENT SEEN: 8:45 a.m. SUBJECTIVE: Staff was spoken to. The patient is interviewed. Mood is noted to be irritable. Affect is constricted. Insight and judgment are noted to be still impaired. Impulse control seems to be limited. Coping skills are noted to be very limited. No side effects to the medications are noted. The patient has been having difficult time to cope with the stress. The patient is religiously preoccupied. The patient's son came to visit the patient. The patient is screaming and yelling and does not want son to leave. ASSESSMENT: The patient is still psychotic and demented. PLAN: To continue the patient with the current medications. I encouraged the patient to verbalize the concerns rather than to act out. [facility]# [id number]
[2017-01-18] MEDS: Multivitamin Tab PO SCH (08:05)
[2017-01-18] MEDS: Magnesium Hydroxide (MOM) 30 mL UDC PO SCH (21:15)
--- NOTE | 2017-01-19 04:54 | Progress Notes ---
DATE: 01/18/2017 PSYCHIATRIC PROGRESS NOTE TIME PATIENT SEEN: 9:30 a.m. SUBJECTIVE: Staff was spoken to. The patient is interviewed. Mood is noted to be irritable. Affect is constricted. The patient is screaming and yelling. The patient is religiously preoccupied. The patient has been reluctant to comply with the medication. The patient's son has been having difficult time the patient has been having difficult time even when the son is visiting patient is not able to contract for safety and is not ready to be discharged to a lower level of care. ASSESSMENT: The patient is still psychotic and demented. PLAN: To continue the patient with the current medications and follow up with the supportive therapy. JOB# [id number]
[2017-01-19] MEDS: Multivitamin Tab PO SCH (09:13)
[2017-01-19] MEDS: Magnesium Hydroxide (MOM) 30 mL UDC PO SCH (21:31)
--- NOTE | 2017-01-19 22:18 | Progress Notes ---
DATE: 01/19/2017 PSYCHIATRIC PROGRESS NOTE TIME PATIENT SEEN: 10:30 a.m. SUBJECTIVE: Staff was spoken to. The patient is interviewed. Mood is noted to be irritable. Affect is constricted. The patient is screaming and yelling earlier, the patient had to be given a dose of Ativan to calm her down. The patient is not making any sense. The patient has been screaming and yelling. The patient is also noted to be religiously preoccupied. ASSESSMENT: The patient is still psychotic and impulsive. PLAN: To continue the patient with the current medications. I encouraged the patient to verbalize the concerns rather than to act out. The patient is not ready to be discharged to a lower level of care in view of her agitation and psychosis. JOB# [id number]
[2017-01-20] MEDS: Multivitamin Tab PO SCH (08:17)
--- NOTE | 2017-01-21 03:03 | Progress Notes ---
DATE: 01/20/2017 PSYCHIATRIC PROGRESS NOTE TIME PATIENT SEEN: 9:30 a.m. SUBJECTIVE: Staff was spoken to. The patient is interviewed. Mood is noted to be less irritable. Affect is appropriate. Not suicidal or homicidal. Insight and judgment noted to be improving. Impulse control seems to be fair. No side effects to the medications are noted. The patient has been able to verbalize the concerns rather than to act out. The patient has been demented, but still could be redirectable this morning. ASSESSMENT: The patient is stabilizing. PLAN: To discharge the patient today for followup on outpatient basis. JOB# [id number]
== END 2017-01-20 14:30 | DRG 884 ==
LOC: ER 00:48 → GERO 01:25
PROVIDERS: ADMIT Psychiatry & Neurology Psychiatry; ATTEND Psychiatry & Neurology Psychiatry
DX: F03.91 Unspecified dementia, unspecified severity, with behavioral disturbance (principal); N39.0 Urinary tract infection, site not specified; I10 Essential (primary) hypertension; F29 Unspecified psychosis not due to a substance or known physiological condition; E87.6 Hypokalemia; F32.9 Major depressive disorder, single episode, unspecified
CPT/HCPCS: 36415-UA; 80053-TC; 80329-TC; 81001-TC; 84443-TC; 85025-TC; 86592-TC; 93005; J2060; Z7610